=== PATIENT | male | born 1975 | race African-American/Black ===

== ENCOUNTER 2016-09-10 09:10 | Emergency (ER) | payer BC ==
[~2016-09-10] VITALS: Ht 190.5 cm; Wt 117.0 kg
[2016-09-10 09:12] VITALS: BP 170/94
== END 2016-09-10 10:26 | disposition home or self-care (01) ==
LOC: ED 10:20
DX: Z48.01 Encounter for change or removal of surgical wound dressing (principal); E11.9 Type 2 diabetes mellitus without complications; I10 Essential (primary) hypertension; E78.5 Hyperlipidemia, unspecified; Z99.2 Dependence on renal dialysis
CPT/HCPCS: 99282

== ENCOUNTER 2016-09-27 04:07 | Inpatient (IN) | payer BC ==
[~2016-09-27] VITALS: Ht 190.5 cm; Wt 112.2 kg
[2016-09-27] MEDS ORDERED: FURO20TA3 PO (04:43)
[2016-09-27] MEDS ORDERED: SIMV40TA3 PO (04:43)
[2016-09-27] MEDS ORDERED: HYDR-3341 PO (04:43)
[2016-09-27] MEDS ORDERED: INSU100V8 SQ (04:43)
[2016-09-27] MEDS ORDERED: CARV12.52 PO (04:43)
[2016-09-27] MEDS ORDERED: CALC0.5C PO (04:43)
[2016-09-27] MEDS ORDERED: LOSA50TA6 PO (04:43)
[2016-09-27] MEDS ORDERED: SODIUM CHLORIDE FLUSH 10ML SYR IVF ONE (05:30)
[2016-09-27 05:54] LABS: BLOOD UREA NITROGEN 39 mg/dL (7-18)
[2016-09-27 06:20] LABS: IS PT STATUS REG ER OR PRE ER? YES
[2016-09-27] MEDS ORDERED: HEPARIN 5,000 UNITS/ML, 1ML ONE (08:27)
[2016-09-27] MEDS ORDERED: HEPARIN 5,000 UNITS/ML, 1ML IV ONE (08:30)
[2016-09-27] MEDS ORDERED: SODIUM CHLORIDE FLUSH 10ML SYR IVF PRN (08:30)
[2016-09-27] MEDS ORDERED: HEPARIN 5,000 UNITS/ML, 1ML IV PRN (08:30)
[2016-09-27] MEDS ORDERED: HEPARIN 25,000 UNITS/500ML PMX 500 ML IV PRN (08:30)
[2016-09-27] MEDS ORDERED: HEPARIN 25,000 UNITS/500ML PMX 500 ML ONE (08:30)
[2016-09-27] MEDS ORDERED: OMNIPAQUE 350 MG/ML, 150 ML BOTTLE ONE (08:30)
[2016-09-27] MEDS ORDERED: LIDOCAINE 2%, 20ML ONE ×2 (10:21)
[2016-09-27] MEDS ORDERED: NALOXONE 1 MG/ML, 2ML ONE (10:22)
[2016-09-27] MEDS ORDERED: MIDAZOLAM 1 MG/ML, 5ML ONE (10:22)
[2016-09-27] MEDS ORDERED: FENTANYL PF 100 MCG/2ML ONE (10:22)
[2016-09-27] MEDS ORDERED: FLUMAZENIL 0.1 MG/1 ML, 5ML ONE (10:22)
[2016-09-27] MEDS ORDERED: morphine SULFATE 10 MG/ML, 1ML IVPush PRN (10:30)
[2016-09-27] MEDS ORDERED: GLUCAGON 1 MG IM PRN (10:30)
[2016-09-27] MEDS ORDERED: ACETAMINOPHEN 325 MG TABLET PO PRN (10:30)
[2016-09-27] MEDS ORDERED: ONDANSETRON 2MG/ML, 2ML IVPush PRN (10:30)
[2016-09-27] MEDS ORDERED: LABETALOL 5MG/ML 40ML VIAL IVPush PRN (10:30)
[2016-09-27] MEDS ORDERED: DEXTROSE 4 GM TAB.CHEW PO PRN (10:30)
[2016-09-27] MEDS ORDERED: POLYETHYLENE GLYCOL 17 GM PACKET PO PRN (10:30)
[2016-09-27] MEDS ORDERED: ONDANSETRON ODT 4 MG PO PRN (10:30)
[2016-09-27] MEDS ORDERED: BISACODYL 10 MG SUPP PR PRN (10:30)
[2016-09-27] MEDS ORDERED: DOCUSATE 100 MG CAPSULE PO PRN (10:30)
[2016-09-27] MEDS ORDERED: DEXTROSE 50%, 50ML SYRINGE IVPush PRN (10:30)
[2016-09-27 12:22] VITALS: BP 128/87
[2016-09-27] MEDS: INSULIN REGULAR 100 UNITS/ML, 3ML VIAL SQ-INSULIN SCH ×3 (13:10→21:12)
[2016-09-27 20:32] VITALS: BP 121/82
[2016-09-27] MEDS: HYDROcodone/APAP 5/325 TABLET PO PRN ×2 (21:09→23:11)
[2016-09-27] MEDS: SIMVASTATIN 40 MG TABLET PO SCH (21:10)
[2016-09-27] MEDS: SODIUM CHLORIDE FLUSH 10ML SYR IVF SCH (21:11)
[2016-09-27] MEDS: INSULIN DETEMIR 100 UNITS/ML, PEN SQ-INSULIN SCH (23:11)
[2016-09-28] MEDS ORDERED: MORPHINE SULFATE 4 MG/ML, 1ML ONE (01:35)
[2016-09-28] MEDS: HYDROcodone/APAP 5/325 TABLET PO PRN (03:23)
[2016-09-28 03:35] VITALS: BP 115/65
[2016-09-28 05:47] LABS: BLOOD UREA NITROGEN 34 mg/dL (7-18)
[2016-09-28] MEDS: INSULIN REGULAR 100 UNITS/ML, 3ML VIAL SQ-INSULIN SCH ×4 (07:00→20:44)
[2016-09-28] MEDS: HEPARIN 25,000 UNITS/500ML PMX 500 ML IV PRN (07:16)
[2016-09-28] MEDS: LOSARTAN 50MG TABLET PO SCH (08:53)
[2016-09-28] MEDS: CALCITRIOL 0.5 MCG CAPSULE PO SCH (08:53)
[2016-09-28] MEDS: CARVEDILOL 12.5 MG TABLET PO SCH (08:53)
[2016-09-28] MEDS: SODIUM CHLORIDE FLUSH 10ML SYR IVF SCH ×2 (08:54→20:45)
[2016-09-28 10:21] LABS: HEP B SURF. AB 3.7 mIU/mL (0.0-10.0)
[2016-09-28 10:47] VITALS: BP 108/75
[2016-09-28 14:32] VITALS: BP 142/95
[2016-09-28] MEDS ORDERED: WARFARIN 10 MG TABLET PO-COUM SCH (18:00)
[2016-09-28 20:00] VITALS: BP 131/82
[2016-09-28] MEDS: SIMVASTATIN 40 MG TABLET PO SCH (20:43)
[2016-09-28] MEDS: INSULIN DETEMIR 100 UNITS/ML, PEN SQ-INSULIN SCH (20:45)
[2016-09-29 02:00] VITALS: BP 122/67
[2016-09-29 05:37] LABS: ANTI-Xa-UNFRACTIONATED HEP 0.18 IU/mL (0.30-0.70)
[2016-09-29 05:50] LABS: BLOOD UREA NITROGEN 52 mg/dL (7-18)
[2016-09-29] MEDS: HEPARIN 25,000 UNITS/500ML PMX 500 ML IV PRN ×2 (05:59→23:39)
[2016-09-29] MEDS: HEPARIN 5,000 UNITS/ML, 1ML IV PRN (06:40)
[2016-09-29] MEDS: INSULIN REGULAR 100 UNITS/ML, 3ML VIAL SQ-INSULIN SCH ×4 (07:51→21:50)
[2016-09-29] MEDS: HYDROcodone/APAP 5/325 TABLET PO PRN (08:25)
[2016-09-29 08:45] VITALS: BP 129/78
[2016-09-29] MEDS: CALCITRIOL 0.5 MCG CAPSULE PO SCH (08:51)
[2016-09-29] MEDS: CARVEDILOL 12.5 MG TABLET PO SCH (08:51)
[2016-09-29] MEDS: LOSARTAN 50MG TABLET PO SCH (08:51)
[2016-09-29] MEDS: SODIUM CHLORIDE FLUSH 10ML SYR IVF SCH ×2 (08:51→21:50)
[2016-09-29 15:31] VITALS: BP 101/60
[2016-09-29] MEDS ORDERED: WARFARIN 7.5 MG TABLET PO-COUM ONE (18:00)
[2016-09-29 20:00] VITALS: BP 138/72
[2016-09-29] MEDS: SIMVASTATIN 40 MG TABLET PO SCH (21:49)
[2016-09-29] MEDS: ZOLPIDEM 5MG TABLET PO PRN (21:49)
[2016-09-29] MEDS: INSULIN DETEMIR 100 UNITS/ML, PEN SQ-INSULIN SCH (21:51)
[2016-09-30 02:00] VITALS: BP 120/71
[2016-09-30 05:42] LABS: ANTI-Xa-UNFRACTIONATED HEP 0.41 IU/mL (0.30-0.70)
[2016-09-30 05:43] LABS: BLOOD UREA NITROGEN 42 mg/dL (7-18)
[2016-09-30 06:46] VITALS: BP 131/86
[2016-09-30] MEDS: LOSARTAN 50MG TABLET PO SCH (08:08)
[2016-09-30] MEDS: SODIUM CHLORIDE FLUSH 10ML SYR IVF SCH ×2 (08:08→21:59)
[2016-09-30] MEDS: INSULIN REGULAR 100 UNITS/ML, 3ML VIAL SQ-INSULIN SCH ×4 (08:08→22:00)
[2016-09-30] MEDS: CARVEDILOL 12.5 MG TABLET PO SCH (08:08)
[2016-09-30] MEDS: CALCITRIOL 0.5 MCG CAPSULE PO SCH (08:09)
[2016-09-30] MEDS: HYDROcodone/APAP 5/325 TABLET PO PRN (11:38)
[2016-09-30 13:55] VITALS: BP 143/83
[2016-09-30] MEDS: WARFARIN HIGH DOSE PROTOCOL XX SCH ×3 (16:08→18:00)
[2016-09-30] MEDS ORDERED: WARFARIN 10 MG TABLET PO-COUM ONE (18:00)
[2016-09-30] MEDS: HEPARIN 25,000 UNITS/500ML PMX 500 ML IV PRN (18:22)
[2016-09-30 20:00] VITALS: BP 135/82
[2016-09-30] MEDS: ZOLPIDEM 5MG TABLET PO PRN (21:59)
[2016-09-30] MEDS: SIMVASTATIN 40 MG TABLET PO SCH (21:59)
[2016-09-30] MEDS: INSULIN DETEMIR 100 UNITS/ML, PEN SQ-INSULIN SCH (22:00)
[2016-10-01] MEDS: HYDROcodone/APAP 5/325 TABLET PO PRN ×2 (01:49→13:28)
[2016-10-01 02:00] VITALS: BP 143/77
[2016-10-01 04:25] LABS: ANTI-Xa-UNFRACTIONATED HEP 0.2 IU/mL (0.30-0.70)
[2016-10-01 04:30] LABS: BLOOD UREA NITROGEN 49 mg/dL (7-18)
[2016-10-01 04:36] LABS: ASPARTATE AMINO TRANSFERASE 17 U/L (15-37)
[2016-10-01] MEDS: HEPARIN 5,000 UNITS/ML, 1ML IV PRN (05:40)
[2016-10-01 06:45] VITALS: BP 150/88
[2016-10-01] MEDS: INSULIN REGULAR 100 UNITS/ML, 3ML VIAL SQ-INSULIN SCH ×4 (07:00→20:07)
[2016-10-01] MEDS: LOSARTAN 50MG TABLET PO SCH (08:46)
[2016-10-01] MEDS: CALCITRIOL 0.5 MCG CAPSULE PO SCH (08:46)
[2016-10-01] MEDS: CARVEDILOL 12.5 MG TABLET PO SCH (08:46)
[2016-10-01] MEDS: SODIUM CHLORIDE FLUSH 10ML SYR IVF SCH ×2 (08:47→21:00)
[2016-10-01] MEDS: WARFARIN HIGH DOSE PROTOCOL XX SCH (11:48)
[2016-10-01] MEDS: HEPARIN 25,000 UNITS/500ML PMX 500 ML IV PRN (12:43)
[2016-10-01 13:03] VITALS: BP 134/85
[2016-10-01] MEDS ORDERED: WARFARIN 10 MG TABLET PO-COUM ONE (18:00)
[2016-10-01] MEDS: INSULIN DETEMIR 100 UNITS/ML, PEN SQ-INSULIN SCH (20:07)
[2016-10-01] MEDS: SIMVASTATIN 40 MG TABLET PO SCH (20:08)
[2016-10-02 02:41] VITALS: BP 146/85
[2016-10-02 05:23] LABS: ANTI-Xa-UNFRACTIONATED HEP 0.59 IU/mL (0.30-0.70)
[2016-10-02 05:41] LABS: ASPARTATE AMINO TRANSFERASE 17 U/L (15-37); BLOOD UREA NITROGEN 59 mg/dL (7-18)
[2016-10-02] MEDS: HEPARIN 25,000 UNITS/500ML PMX 500 ML IV PRN (05:41)
[2016-10-02] MEDS: INSULIN REGULAR 100 UNITS/ML, 3ML VIAL SQ-INSULIN SCH ×4 (07:00→20:50)
[2016-10-02 08:39] VITALS: BP 173/91
[2016-10-02] MEDS: SODIUM CHLORIDE FLUSH 10ML SYR IVF SCH ×2 (09:00→20:49)
[2016-10-02] MEDS ORDERED: MICROFIBRILLAR COLLAGEN 1 GM TP ONE (10:00)
[2016-10-02] MEDS: WARFARIN HIGH DOSE PROTOCOL XX SCH (12:00)
[2016-10-02 14:48] VITALS: BP 107/77
[2016-10-02] MEDS: CALCITRIOL 0.5 MCG CAPSULE PO SCH (16:02)
[2016-10-02] MEDS: LOSARTAN 50MG TABLET PO SCH (16:02)
[2016-10-02] MEDS: CARVEDILOL 12.5 MG TABLET PO SCH (16:02)
[2016-10-02] MEDS ORDERED: WARFARIN 10 MG TABLET PO-COUM ONE (18:00)
[2016-10-02 19:05] VITALS: BP 100/57
[2016-10-02] MEDS: SIMVASTATIN 40 MG TABLET PO SCH (20:49)
[2016-10-02] MEDS: ZOLPIDEM 5MG TABLET PO PRN (20:49)
[2016-10-02] MEDS: INSULIN DETEMIR 100 UNITS/ML, PEN SQ-INSULIN SCH (20:51)
[2016-10-02] MEDS: HYDROcodone/APAP 5/325 TABLET PO PRN (23:54)
[2016-10-03 02:31] VITALS: BP 68/43
[2016-10-03 05:12] VITALS: BP 80/53
[2016-10-03 05:59] LABS: BLOOD UREA NITROGEN 51 mg/dL (7-18)
[2016-10-03] MEDS: INSULIN REGULAR 100 UNITS/ML, 3ML VIAL SQ-INSULIN SCH ×4 (07:30→20:33)
[2016-10-03] MEDS: HEPARIN 25,000 UNITS/500ML PMX 500 ML IV PRN (08:35)
[2016-10-03 09:00] VITALS: BP 113/73
[2016-10-03] MEDS: LOSARTAN 50MG TABLET PO SCH (09:00)
[2016-10-03] MEDS: CARVEDILOL 12.5 MG TABLET PO SCH (09:00)
[2016-10-03] MEDS: SODIUM CHLORIDE FLUSH 10ML SYR IVF SCH ×2 (09:00→20:33)
[2016-10-03] MEDS: CALCITRIOL 0.5 MCG CAPSULE PO SCH (09:10)
[2016-10-03] MEDS: WARFARIN HIGH DOSE PROTOCOL XX SCH (12:00)
[2016-10-03 14:30] VITALS: BP 113/68
[2016-10-03] MEDS ORDERED: WARFARIN 5 MG TABLET PO-COUM ONE (18:00)
[2016-10-03 20:04] VITALS: BP 123/72
[2016-10-03] MEDS: INSULIN DETEMIR 100 UNITS/ML, PEN SQ-INSULIN SCH (20:34)
[2016-10-03] MEDS: SIMVASTATIN 40 MG TABLET PO SCH (20:34)
[2016-10-04 02:40] VITALS: BP 104/53
[2016-10-04] MEDS: HEPARIN 25,000 UNITS/500ML PMX 500 ML IV PRN (03:42)
[2016-10-04 06:54] LABS: BLOOD UREA NITROGEN 62 mg/dL (7-18)
[2016-10-04] MEDS ORDERED: WARF5TAB PO (07:41)
[2016-10-04] MEDS: INSULIN REGULAR 100 UNITS/ML, 3ML VIAL SQ-INSULIN SCH (08:05)
[2016-10-04] MEDS: SODIUM CHLORIDE FLUSH 10ML SYR IVF SCH (08:12)
[2016-10-04] MEDS: CALCITRIOL 0.5 MCG CAPSULE PO SCH (08:12)
[2016-10-04 08:16] VITALS: BP 115/78
[2016-10-04] MEDS: LOSARTAN 50MG TABLET PO SCH (09:00)
[2016-10-04] MEDS: CARVEDILOL 12.5 MG TABLET PO SCH (09:00)
== END 2016-10-04 11:20 | disposition home or self-care (01) | DRG 299 ==
LOC: ED 04:51 → EDIP 08:28 → 4WST 12:13
PROVIDERS: ADMIT Internal Medicine; ATTEND Internal Medicine
PROC: 02HV33Z Insertion of Infusion Device into Superior Vena Cava, Percutaneous Approach (ICD-10-PCS; principal; 2016-09-27)
PROC: B548ZZA Ultrasonography of Superior Vena Cava, Guidance (ICD-10-PCS; 2016-09-27)
PROC: 5A1D60Z (ICD-10-PCS; 2016-09-27)
DX: I82.C11 Acute embolism and thrombosis of right internal jugular vein (principal); N18.6 End stage renal disease; I12.0 Hypertensive chronic kidney disease with stage 5 chronic kidney disease or end stage renal disease; E44.1 Mild protein-calorie malnutrition; E87.1 Hypo-osmolality and hyponatremia; I82.A11 Acute embolism and thrombosis of right axillary vein; E11.22 Type 2 diabetes mellitus with diabetic chronic kidney disease; D63.1 Anemia in chronic kidney disease; E78.5 Hyperlipidemia, unspecified; Z68.30 Body mass index [BMI] 30.0-30.9, adult; Z79.4 Long term (current) use of insulin; Z82.49 Family history of ischemic heart disease and other diseases of the circulatory system; Z99.2 Dependence on renal dialysis; Z83.3 Family history of diabetes mellitus; Z84.1 Family history of disorders of kidney and ureter
CPT/HCPCS: 36415; 36558; 71010; 71275; 76937; 77001; 80048; 80053; 82040; 82962; 84100; 84484; 85025; 85520; 85610; 85730; 86706; 87340; 93005; 93990; 96374; C1894; J1644; J1815; J2250; J2405; J3010; J3490; Q9967; C1750; J1642; J2310

== ENCOUNTER 2017-01-29 09:27 | Emergency (ER) | payer BC ==
[~2017-01-29] VITALS: Ht 190.5 cm; Wt 109.0 kg
[~2017-01-29 09:27] MED LIST: CALC0.5C PO; CARV12.52 PO; FURO20TA3 PO; HYDR-3341 PO; INSU100V8 SQ; LOSA50TA6 PO; SIMV40TA3 PO; WARF5TAB PO
[2017-01-29] MEDS ORDERED: AMLO5TAB2 PO (09:42)
[2017-01-29] MEDS ORDERED: WARF10TA6 PO (09:42)
[2017-01-29] MEDS ORDERED: WARF5TAB7 PO (09:42)
[2017-01-29] MEDS ORDERED: GLIM2TAB2 PO (09:42)
[2017-01-29] MEDS ORDERED: ONDANSETRON 2MG/ML, 2ML ONE (10:28)
[2017-01-29] MEDS ORDERED: SODIUM CHLORIDE FLUSH 10ML SYR IVF ONE (10:30)
[2017-01-29] MEDS ORDERED: ONDANSETRON 2MG/ML, 2ML IVPush ONE (10:30)
[2017-01-29] MEDS ORDERED: SODIUM CHLORIDE 0.9% 1,000ML IVBOLUS ONE (10:30)
[2017-01-29 11:04] LABS: BLOOD UREA NITROGEN 30 mg/dL (7-18)
[2017-01-29 11:06] LABS: ASPARTATE AMINO TRANSFERASE 18 U/L (15-37)
[2017-01-29 11:13] LABS: HEMATOCRIT 33.3 % (39.2-51.8); HEMOGLOBIN 11.4 g/dL (13.7-18.0); WHITE BLOOD COUNT 10.8 x10^3/uL (3.4-10)
[2017-01-29 11:14] LABS: DIFF TOTAL CELLS COUNTED 100 CELL DIFF
[2017-01-29 11:18] LABS: ANISOCYTOSIS 1+
[2017-01-29 11:26] LABS: VERIFY COUNTS? YES
[2017-01-29 12:35] VITALS: BP 173/101
== END 2017-01-29 13:17 | disposition home or self-care (01) ==
LOC: ED 13:11
DX: S09.90XA Unspecified injury of head, initial encounter (principal); R55 Syncope and collapse; E87.1 Hypo-osmolality and hyponatremia; E87.5 Hyperkalemia; E11.22 Type 2 diabetes mellitus with diabetic chronic kidney disease; I12.9 Hypertensive chronic kidney disease with stage 1 through stage 4 chronic kidney disease, or unspecified chronic kidney disease; N18.9 Chronic kidney disease, unspecified; Z86.718 Personal history of other venous thrombosis and embolism; E78.5 Hyperlipidemia, unspecified; Z99.2 Dependence on renal dialysis; X58.XXXA Exposure to other specified factors, initial encounter; Y93.89 Activity, other specified; Y99.8 Other external cause status; Y92.89 Other specified places as the place of occurrence of the external cause
CPT/HCPCS: 36415; 70450; 71010; 80053; 85025; 85610; 85730; 93005; 96361; 96374; 99285; J2405; J7030

== ENCOUNTER 2018-09-15 19:13 | Inpatient (IN) | payer BC, OTHER ==
[~2018-09-15] VITALS: Ht 182.9 cm; Wt 112.9 kg
[~2018-09-15 19:13] MED LIST changes: +AMLO-150 PO; -CALC0.5C PO; +CALC0.5C9 PO; +GLIM2TAB2 PO; +LOSA50TA14 PO; -LOSA50TA6 PO; +WARF-36 PO; +WARF10TA43 PO
--- NOTE | 2018-09-15 19:40 | NUR ---
THIS IS A 43 YO MALE WHO PRESENTS TO THE ER C/O GENERALIZED WEAKNESS AFTER BEING UNABLE TO COMPLETE DIALYSIS TODAY. PT HAS RIGHT FISTULA. NO BRUIT/THRILL NOTED. PER PT LAST SUCCESSFUL DIALYSIS WAS SUNDAY. PT HAD MILDLY SUCCESSFUL DIALYSIS ON SUNDAY BUT THEY WERE UNABLE TO FINISH, TOLD PT TO RETURN TODAY. FISTULA NOT FUNCTIONING TODAY. PT AO X 4. SKIN WARM AND DRY. PT DENIES PAIN, SOB OR N/V. 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 PT ON CONT BP AND O2 MONITORS. CALL LIGHT WITHIN REACH. FAMILY AT BEDSIDE. WILL CONT TO MONITOR PT.
[2018-09-15 20:23] LABS: BASOPHILS # (AUTO) 0.03 x10^3/uL (0-0.1); BASOPHILS % (AUTO) 1 % (0-1); EOSINOPHILS # (AUTO) 0.22 x10^3/uL (0-0.4); EOSINOPHILS % (AUTO) 4 % (1-7); LYMPHOCYTES # (AUTO) 1.47 x10^3/uL (1-3.4); LYMPHOCYTES % (AUTO) 26 % (22-44); MD NO; MEAN CORPUSCULAR HEMOGLOBIN 31.9 pg (27.5-34.5); MEAN CORPUSCULAR HGB CONC 33.2 g/dL (33.2-36.2); MEAN CORPUSCULAR VOLUME 95.9 fL (81-97); MEAN PLATELET VOLUME 7.2 fL (7.4-10.4); MONOCYTES # (AUTO) 0.33 x10^3/uL (0.2-0.8); MONOCYTES % (AUTO) 6 % (2-9); NEUTROPHILS # (AUTO) 3.65 x10^3/uL (1.8-6.8); NEUTROPHILS % (AUTO) 64 % (42-75); PLATELET COUNT 319 x10^3/uL (130-400); RED BLOOD COUNT 3.36 x10^6/uL (4.38-5.82); RED CELL DISTRIBUTION WIDTH 16.1 % (9.4-14.8)
[2018-09-15] MEDS ORDERED: ATOR40TA PO (20:24)
[2018-09-15] MEDS ORDERED: SODIUM CHLORIDE FLUSH 10ML SYR IVF ONE (20:30)
--- NOTE | 2018-09-15 20:30 | NUR ---
PT RESTING ON GURNEY. REPOSITIONED FOR COMFORT. PT DENIES PAIN, SOB OR N/V. PT AWARE WE ARE WAITING FOR LAB/IMAGING RESULTS. PT ON CONT BP, CARDIAC AND O2 MONITORS. CALL LIGHT WITHIN REACH. WILL CONT TO MONITOR PT.
[2018-09-15 20:34] LABS: ALBUMIN 3.8 g/dL (3.4-5.0); ANION GAP 8 mmol/L (5-15); CALCIUM 7.3 mg/dL (8.5-10.1); CHLORIDE 107 mmol/L (98-107)
[2018-09-15 20:42] LABS: INTERNATIONAL NORMALIZED RATIO 1.02 (0.93-1.1); PROTHROMBIN TIME 10.7 Seconds (9.6-11.5)
[2018-09-15] MEDS ORDERED: SODIUM BICARB 8.4%, 50ML SYRINGE ONE (21:00)
[2018-09-15] MEDS ORDERED: DEXTROSE 50%, 50ML SYRINGE IVPush ONE (21:00)
[2018-09-15] MEDS ORDERED: SODIUM POLY SULFONATE UDC 15 GM/60 ML PO ONE (21:00)
[2018-09-15] MEDS ORDERED: CALCIUM GLUCONATE 4.6 MEQ in SODIUM CHLORIDE 0.9% 50 ML IV ONE ×2 (21:00→22:00)
[2018-09-15] MEDS ORDERED: INSULIN REGULAR 100 UNITS/ML, 3ML VIAL IVPush ONE (21:00)
[2018-09-15] MEDS ORDERED: INSULIN SINGLE DOSE, ER SQ-INSULIN ONE (21:00)
[2018-09-15] MEDS ORDERED: SODIUM BICARB 8.4%, 50ML SYRINGE IVPush ONE (21:00)
--- NOTE | 2018-09-15 21:27 | NUR ---
PT CURRENTLY DOZING ON TAB. PT AWAKENS EASILY TO NAME BEING CALLED. PT AO X 4. SKIN WARM AND DRY. RESP EVEN AND UNLABORED. PT AWARE THAT WE ARE WAITING FOR ADMISSION. DENIES PAIN OR NEEDS AT THIS TIME. PT ON CONT BP, CARDIAC AND O2 MONITORS. CALL LIGHT WITHIN REACH. WILL CONT TO MONITOR PT.
--- NOTE | 2018-09-15 21:39 | NUR ---
ADMITTING MD MALDONADO AT BEDSIDE FOR EVAL.
[2018-09-15] MEDS ORDERED: DEXTROSE 50%, 50ML SYRINGE IVPush PRN (22:00)
[2018-09-15] MEDS ORDERED: PROMETHAZINE 25 MG/ML, 1ML IM PRN (22:00)
[2018-09-15] MEDS ORDERED: DEXTROSE 4 GM TAB.CHEW PO PRN (22:00)
[2018-09-15] MEDS ORDERED: ACETAMINOPHEN 325 MG TABLET PO PRN (22:00)
[2018-09-15] MEDS ORDERED: hydrALAzine 20 MG/ML, 1ML IVPush PRN (22:00)
[2018-09-15] MEDS ORDERED: GLUCAGON 1 MG IM PRN (22:00)
--- NOTE | 2018-09-15 22:05 | NUR ---
REPORT TO CATHY MARSHALL ON MED/TELE. RN AWARE THAT PT DID NOT RECIEVE THE POLY SULFONATE YET. PT AO X 4. SKIN WARM AND DRY. RESP EVEN AND EQUAL. PT CONT TO DENY PAIN. 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 CALL LIGHT WITHIN REACH.
[2018-09-15 22:15] VITALS: BP 127/85
[2018-09-15 22:57] LABS: HEMOGLOBIN A1C 8.8 % (4.2-6.3)
[2018-09-15] MEDS: FUROSEMIDE 20 MG TABLET PO SCH (23:32)
[2018-09-15] MEDS: HEPARIN 5,000 UNITS/ML, 1ML SQ SCH (23:32)
[2018-09-16 00:13] LABS: ALBUMIN 3.6 g/dL (3.4-5.0); ANION GAP 10 mmol/L (5-15); CALCIUM 7.7 mg/dL (8.5-10.1); CHLORIDE 109 mmol/L (98-107)
[2018-09-16 00:23] LABS: THYROID STIMULATING HORMONE 0.515 mIU/L (0.358-3.740)
[2018-09-16 00:50] VITALS: BP 151/90
[2018-09-16 05:54] LABS: BASOPHILS # (AUTO) 0.01 x10^3/uL (0-0.1); BASOPHILS % (AUTO) 0 % (0-1); EOSINOPHILS # (AUTO) 0.07 x10^3/uL (0-0.4); EOSINOPHILS % (AUTO) 1 % (1-7); LYMPHOCYTES # (AUTO) 0.85 x10^3/uL (1-3.4); LYMPHOCYTES % (AUTO) 13 % (22-44); MD NO; MEAN CORPUSCULAR HEMOGLOBIN 32.8 pg (27.5-34.5); MEAN CORPUSCULAR HGB CONC 34.1 g/dL (33.2-36.2); MEAN CORPUSCULAR VOLUME 96.3 fL (81-97); MEAN PLATELET VOLUME 7.2 fL (7.4-10.4); MONOCYTES # (AUTO) 0.24 x10^3/uL (0.2-0.8); MONOCYTES % (AUTO) 4 % (2-9); NEUTROPHILS # (AUTO) 5.62 x10^3/uL (1.8-6.8); NEUTROPHILS % (AUTO) 83 % (42-75); PLATELET COUNT 296 x10^3/uL (130-400); RED BLOOD COUNT 3.43 x10^6/uL (4.38-5.82); RED CELL DISTRIBUTION WIDTH 16.1 % (9.4-14.8)
[2018-09-16] MEDS: HEPARIN 5,000 UNITS/ML, 1ML SQ SCH ×3 (06:00→22:11)
[2018-09-16 07:10] LABS: ANION GAP 10 mmol/L (5-15); CALCIUM 7.4 mg/dL (8.5-10.1); CHLORIDE 106 mmol/L (98-107)
[2018-09-16 07:14] LABS: CHOL/HDL RATIO 4.1; CHOLESTEROL, TOTAL 110 mg/dL (140-239); HDL CHOL % 25 % (26-37); HDL CHOLESTEROL (DIRECT) 27 mg/dL (40-60); LDL CHOLESTEROL,CALCULATED 57 mg/dL (54-169); LDL/HDL RATIO 2.1 (0.5-3.0); TRIGLYCERIDES 128 mg/dL (50-200); VLDL CHOLESTEROL 26 mg/dL (0-25)
[2018-09-16 07:19] VITALS: BP 135/80
[2018-09-16] MEDS ORDERED: CALCIUM GLUCONATE 4.6 MEQ in SODIUM CHLORIDE 0.9% 50 ML IV ONE (07:30)
[2018-09-16] MEDS ORDERED: CALCIUM GLUCONATE 0.46MEQ/1ML IVPush ONE (07:30)
[2018-09-16] MEDS ORDERED: SODIUM BICARB 8.4%, 50ML SYRINGE IVPush SCH (07:30)
[2018-09-16] MEDS ORDERED: INSULIN REGULAR 100 UNITS/ML, 3ML VIAL IVPush ONE (07:30)
[2018-09-16] MEDS ORDERED: DEXTROSE 50%, 50ML SYRINGE IVPush ONE (07:30)
[2018-09-16] MEDS ORDERED: SODIUM BICARB 8.4%, 50ML SYRINGE IVPush ONE (08:00)
[2018-09-16] MEDS ORDERED: SODIUM POLY SULFONATE UDC 15 GM/60 ML PO ONE ×2 (08:30)
[2018-09-16] MEDS: FUROSEMIDE 20 MG TABLET PO SCH ×2 (09:00→22:12)
[2018-09-16] MEDS: CARVEDILOL 12.5 MG TABLET PO SCH ×2 (09:00→22:12)
[2018-09-16] MEDS: INSULIN LISPRO 100 UNITS/ML, PEN SQ-INSULIN SCH ×4 (09:34→22:11)
[2018-09-16] MEDS ORDERED: LIDOCAINE 1%, 20ML ONE (10:30)
[2018-09-16] MEDS: SODIUM CHLORIDE FLUSH 10ML SYR IVF SCH ×2 (12:18→22:13)
[2018-09-16 14:05] VITALS: BP 144/91
[2018-09-16] MEDS: LOSARTAN 50MG TABLET PO SCH (17:41)
[2018-09-16] MEDS: AMLODIPINE 5 MG TABLET PO SCH (17:41)
[2018-09-16 20:03] VITALS: BP 118/74
[2018-09-16] MEDS: ATORVASTATIN 40 MG TABLET PO SCH (22:12)
[2018-09-17 02:44] VITALS: BP 128/78
[2018-09-17] MEDS: HEPARIN 5,000 UNITS/ML, 1ML SQ SCH ×3 (05:36→22:09)
[2018-09-17] MEDS: INSULIN LISPRO 100 UNITS/ML, PEN SQ-INSULIN SCH ×4 (07:00→20:26)
[2018-09-17 07:08] VITALS: BP 115/74
[2018-09-17 07:40] LABS: BASOPHILS # (AUTO) 0.01 x10^3/uL (0-0.1); BASOPHILS % (AUTO) 0 % (0-1); EOSINOPHILS # (AUTO) 0.11 x10^3/uL (0-0.4); EOSINOPHILS % (AUTO) 2 % (1-7); LYMPHOCYTES # (AUTO) 1.17 x10^3/uL (1-3.4); LYMPHOCYTES % (AUTO) 21 % (22-44); MD NO; MEAN CORPUSCULAR HGB CONC 33.6 g/dL (33.2-36.2); MEAN CORPUSCULAR VOLUME 95.2 fL (81-97); MEAN PLATELET VOLUME 6.9 fL (7.4-10.4); MONOCYTES # (AUTO) 0.29 x10^3/uL (0.2-0.8); MONOCYTES % (AUTO) 5 % (2-9); NEUTROPHILS # (AUTO) 4.09 x10^3/uL (1.8-6.8); NEUTROPHILS % (AUTO) 72 % (42-75); PLATELET COUNT 291 x10^3/uL (130-400); RED BLOOD COUNT 3.29 x10^6/uL (4.38-5.82); RED CELL DISTRIBUTION WIDTH 16.3 % (9.4-14.8)
[2018-09-17 07:51] LABS: ANION GAP 9 mmol/L (5-15); CALCIUM 7.6 mg/dL (8.5-10.1); CHLORIDE 105 mmol/L (98-107)
[2018-09-17] MEDS: SODIUM CHLORIDE FLUSH 10ML SYR IVF SCH ×2 (08:23→20:27)
[2018-09-17] MEDS: SEVELAMER CARBONATE 800MG TAB PO SCH ×2 (12:00→17:37)
[2018-09-17 13:03] VITALS: BP 132/54
[2018-09-17 15:36] VITALS: BP 127/75
[2018-09-17] MEDS: CARVEDILOL 12.5 MG TABLET PO SCH ×2 (15:44→20:25)
[2018-09-17] MEDS: AMLODIPINE 5 MG TABLET PO SCH (15:44)
[2018-09-17] MEDS: FUROSEMIDE 20 MG TABLET PO SCH ×2 (15:44→20:19)
[2018-09-17] MEDS: LOSARTAN 50MG TABLET PO SCH (15:44)
[2018-09-17 18:50] VITALS: BP 93/57
[2018-09-17] MEDS: DIPHENHYDRAMINE 50 MG CAPSULE PO PRN (20:26)
[2018-09-17] MEDS: ATORVASTATIN 40 MG TABLET PO SCH (20:26)
[2018-09-18 02:08] VITALS: BP 92/57
[2018-09-18 06:16] LABS: ALBUMIN 3.4 g/dL (3.4-5.0); ANION GAP 7 mmol/L (5-15); CALCIUM 7.8 mg/dL (8.5-10.1); CHLORIDE 102 mmol/L (98-107)
[2018-09-18] MEDS: HEPARIN 5,000 UNITS/ML, 1ML SQ SCH ×3 (06:17→22:00)
[2018-09-18] MEDS: INSULIN LISPRO 100 UNITS/ML, PEN SQ-INSULIN SCH ×4 (07:00→20:38)
[2018-09-18 07:14] VITALS: BP 95/59
[2018-09-18] MEDS: SEVELAMER CARBONATE 800MG TAB PO SCH ×3 (07:23→20:09)
[2018-09-18] MEDS: LOSARTAN 50MG TABLET PO SCH (09:00)
[2018-09-18] MEDS: AMLODIPINE 5 MG TABLET PO SCH (09:00)
[2018-09-18] MEDS: FUROSEMIDE 20 MG TABLET PO SCH ×2 (09:00→20:10)
[2018-09-18] MEDS: CARVEDILOL 12.5 MG TABLET PO SCH ×2 (09:29→20:10)
[2018-09-18] MEDS: SODIUM CHLORIDE FLUSH 10ML SYR IVF SCH ×2 (12:04→20:09)
[2018-09-18] MEDS ORDERED: PROTAMINE SULFATE 10 MG/ML, 5ML ONE (13:31)
[2018-09-18] MEDS ORDERED: BUPIVACAINE/PF 0.5% ONE (13:31)
[2018-09-18] MEDS ORDERED: THROMBIN 5,000 UNIT VIAL TP ONE (13:32)
[2018-09-18] MEDS ORDERED: HEPARIN 1,000 UNITS/ML, 10ML ONE (13:32)
[2018-09-18] MEDS ORDERED: FENTANYL PF 250 MCG/5ML ONE (14:13)
[2018-09-18] MEDS ORDERED: THROMBIN 20,000 UNIT VIAL TP ONE (14:20)
[2018-09-18] MEDS ORDERED: MICROFIBRILLAR COLLAGEN 1 GM TP ONE (14:20)
[2018-09-18] MEDS ORDERED: EPHEDRINE 50 MG/ML, 1ML ONE (14:22)
[2018-09-18] MEDS ORDERED: MIDAZOLAM 1 MG/ML, 2ML ONE (14:24)
[2018-09-18] MEDS ORDERED: ONDANSETRON 2MG/ML, 2ML ONE (15:15)
[2018-09-18] MEDS ORDERED: CEFAZOLIN 1,000 MG ONE (15:15)
[2018-09-18] MEDS ORDERED: DEXAMETHASONE 4 MG/ML, 1ML ONE (15:15)
[2018-09-18] MEDS ORDERED: PROPOFOL 10 MG/ML, 20ML ONE (15:15)
[2018-09-18] MEDS ORDERED: FENTANYL PF 100 MCG/2ML ONE (15:18)
[2018-09-18] MEDS ORDERED: ACETAMINOPHEN 325 MG TABLET PO PRN (15:30)
[2018-09-18] MEDS ORDERED: FENTANYL PF 100 MCG/2ML IV PRN (15:30)
[2018-09-18] MEDS ORDERED: HYDROmorphone 2 MG/ML, 1ML IVPush PRN (15:30)
[2018-09-18] MEDS ORDERED: PROMETHAZINE 25 MG/ML, 1ML IV PRN (15:30)
[2018-09-18] MEDS ORDERED: OXYcodone 5 MG/5 ML ORAL.SOL UDC PO PRN (15:30)
[2018-09-18] MEDS ORDERED: ONDANSETRON ODT 8 MG PO PRN (15:30)
[2018-09-18] MEDS ORDERED: ONDANSETRON 2MG/ML, 2ML IV PRN (15:30)
[2018-09-18] MEDS ORDERED: OXYcodone 5 MG/5 ML ORAL.SOL UDC ONE (16:07)
[2018-09-18] MEDS ORDERED: OXYcodone/APAP 5/325MG TABLET ONE (17:48)
[2018-09-18] MEDS ORDERED: OXYcodone IR 5MG TABLET PO PRN ×2 (18:00)
[2018-09-18 18:33] VITALS: BP 167/85
[2018-09-18 19:05] VITALS: BP 126/82
[2018-09-18] MEDS: ATORVASTATIN 40 MG TABLET PO SCH (20:10)
[2018-09-19 00:39] VITALS: BP 105/66
[2018-09-19 05:14] LABS: BASOPHILS % (AUTO) 0 % (0-1); EOSINOPHILS # (AUTO) 0.29 x10^3/uL (0-0.4); EOSINOPHILS % (AUTO) 4 % (1-7); LYMPHOCYTES # (AUTO) 0.88 x10^3/uL (1-3.4); LYMPHOCYTES % (AUTO) 13 % (22-44); MD NO; MEAN CORPUSCULAR HEMOGLOBIN 32.6 pg (27.5-34.5); MEAN CORPUSCULAR VOLUME 95.9 fL (81-97); MONOCYTES # (AUTO) 0.38 x10^3/uL (0.2-0.8); MONOCYTES % (AUTO) 6 % (2-9); NEUTROPHILS # (AUTO) 5.23 x10^3/uL (1.8-6.8); NEUTROPHILS % (AUTO) 77 % (42-75); PLATELET COUNT 256 x10^3/uL (130-400); RED CELL DISTRIBUTION WIDTH 15.4 % (9.4-14.8)
[2018-09-19 05:20] LABS: ALBUMIN 3.3 g/dL (3.4-5.0); ANION GAP 9 mmol/L (5-15); CALCIUM 7.8 mg/dL (8.5-10.1); CHLORIDE 101 mmol/L (98-107)
[2018-09-19] MEDS: HEPARIN 5,000 UNITS/ML, 1ML SQ SCH ×3 (05:28→21:30)
[2018-09-19] MEDS: INSULIN LISPRO 100 UNITS/ML, PEN SQ-INSULIN SCH ×4 (07:00→20:32)
[2018-09-19] MEDS: SEVELAMER CARBONATE 800MG TAB PO SCH ×3 (08:00→17:50)
[2018-09-19] MEDS: SODIUM CHLORIDE FLUSH 10ML SYR IVF SCH ×2 (09:00→21:00)
[2018-09-19] MEDS: CARVEDILOL 12.5 MG TABLET PO SCH ×2 (09:00→21:00)
[2018-09-19] MEDS: LOSARTAN 50MG TABLET PO SCH (09:00)
[2018-09-19] MEDS: FUROSEMIDE 20 MG TABLET PO SCH ×2 (09:00→21:31)
[2018-09-19] MEDS: AMLODIPINE 5 MG TABLET PO SCH (09:00)
[2018-09-19 12:16] VITALS: BP 112/81
[2018-09-19 20:00] VITALS: BP 114/62
[2018-09-19] MEDS ORDERED: INSULIN GLARGINE 100 UNITS/ML, PEN SQ-INSULIN SCH (21:00)
[2018-09-19] MEDS: ATORVASTATIN 40 MG TABLET PO SCH (21:32)
[2018-09-20 02:00] VITALS: BP 121/76
[2018-09-20] MEDS: DIPHENHYDRAMINE 50 MG CAPSULE PO PRN (03:07)
[2018-09-20 05:58] LABS: ALBUMIN 3.6 g/dL (3.4-5.0); CALCIUM 8.6 mg/dL (8.5-10.1); CHLORIDE 99 mmol/L (98-107)
[2018-09-20 06:01] LABS: ANION GAP 9 mmol/L (5-15)
[2018-09-20] MEDS: HEPARIN 5,000 UNITS/ML, 1ML SQ SCH ×2 (06:05→14:00)
[2018-09-20] MEDS: INSULIN LISPRO 100 UNITS/ML, PEN SQ-INSULIN SCH ×3 (07:00→16:00)
[2018-09-20 07:24] VITALS: BP 118/77
[2018-09-20] MEDS: SEVELAMER CARBONATE 800MG TAB PO SCH ×2 (08:44→13:39)
[2018-09-20] MEDS: FUROSEMIDE 20 MG TABLET PO SCH (08:45)
[2018-09-20] MEDS: CARVEDILOL 12.5 MG TABLET PO SCH (08:45)
[2018-09-20] MEDS: LOSARTAN 50MG TABLET PO SCH (08:45)
[2018-09-20] MEDS: SODIUM CHLORIDE FLUSH 10ML SYR IVF SCH (08:45)
[2018-09-20] MEDS: AMLODIPINE 5 MG TABLET PO SCH (08:45)
[2018-09-20] MEDS ORDERED: GLIMEPIRIDE 1 MG TABLET PO SCH (09:00)
[2018-09-20] MEDS ORDERED: SEVE800T8 PO (17:11)
== END 2018-09-20 19:35 | disposition home or self-care (01) | DRG 252 ==
LOC: ED 20:52 → EDIP 20:53 → ED 21:00 → 4EST 22:08
PROVIDERS: ADMIT Family Medicine; ATTEND Family Medicine
PROC: 02HV33Z Insertion of Infusion Device into Superior Vena Cava, Percutaneous Approach (ICD-10-PCS; 2018-09-16)
PROC: B5181ZA Fluoroscopy of Superior Vena Cava using Low Osmolar Contrast, Guidance (ICD-10-PCS; 2018-09-16)
PROC: B548ZZA Ultrasonography of Superior Vena Cava, Guidance (ICD-10-PCS; 2018-09-16)
PROC: 5A1D70Z Performance of Urinary Filtration, Intermittent, Less than 6 Hours Per Day (ICD-10-PCS; 2018-09-16)
PROC: 5A1D70Z Performance of Urinary Filtration, Intermittent, Less than 6 Hours Per Day (ICD-10-PCS; 2018-09-17)
PROC: 0JH63XZ Insertion of Tunneled Vascular Access Device into Chest Subcutaneous Tissue and Fascia, Percutaneous Approach (ICD-10-PCS; 2018-09-18)
PROC: 02PY33Z Removal of Infusion Device from Great Vessel, Percutaneous Approach (ICD-10-PCS; 2018-09-18)
PROC: 02HV33Z Insertion of Infusion Device into Superior Vena Cava, Percutaneous Approach (ICD-10-PCS; 2018-09-18)
PROC: B5181ZA Fluoroscopy of Superior Vena Cava using Low Osmolar Contrast, Guidance (ICD-10-PCS; 2018-09-18)
PROC: B548ZZA Ultrasonography of Superior Vena Cava, Guidance (ICD-10-PCS; 2018-09-18)
PROC: 031B0ZF Bypass Right Radial Artery to Lower Arm Vein, Open Approach (ICD-10-PCS; principal; 2018-09-18 14:30)
PROC: 05LD0ZZ Occlusion of Right Cephalic Vein, Open Approach (ICD-10-PCS; 2018-09-18 14:30)
PROC: 5A1D70Z Performance of Urinary Filtration, Intermittent, Less than 6 Hours Per Day (ICD-10-PCS; 2018-09-19)
PROC: 5A1D70Z Performance of Urinary Filtration, Intermittent, Less than 6 Hours Per Day (ICD-10-PCS; 2018-09-20)
DX: T82.868A Thrombosis due to vascular prosthetic devices, implants and grafts, initial encounter (principal); N18.6 End stage renal disease; I12.0 Hypertensive chronic kidney disease with stage 5 chronic kidney disease or end stage renal disease; E87.5 Hyperkalemia; D63.1 Anemia in chronic kidney disease; E11.22 Type 2 diabetes mellitus with diabetic chronic kidney disease; E11.649 Type 2 diabetes mellitus with hypoglycemia without coma; E78.5 Hyperlipidemia, unspecified; E83.39 Other disorders of phosphorus metabolism; R19.7 Diarrhea, unspecified; Y71.2 Prosthetic and other implants, materials and accessory cardiovascular devices associated with adverse incidents; E83.51 Hypocalcemia; N25.0 Renal osteodystrophy; Y92.89 Other specified places as the place of occurrence of the external cause; Z79.4 Long term (current) use of insulin; Z99.2 Dependence on renal dialysis; Z87.01 Personal history of pneumonia (recurrent)
CPT/HCPCS: 36415; 36556; 71045; 76000; 76937; 77001; 80048; 80061; 80069; 82040; 82962; 83036; 83735; 84100; 84443; 85025; 85610; 85730; 86705; 86706; 87340; 93005; 96365; 96375; G0378; J0610; J0690; J1100; J1644; J1815; J2250; J2405; J2550; J2704; J2720; J3010; C1751; C1757; J1642

== ENCOUNTER 2018-11-04 10:33 | Day surgery (SDC) | payer BC ==
[~2018-11-04] VITALS: Ht 182.9 cm; Wt 107.1 kg
[~2018-11-04 10:33] MED LIST changes: +ATOR40TA PO; +BUPIVACAINE/EPI 0.5% 1:200K ONE; +HEPARIN 1,000 UNITS/ML, 10ML ONE; +SEVE800T8 PO
[2018-11-04] MEDS ORDERED: SODIUM CHLORIDE 0.9% 1,000 ML IV SCH (11:09)
[2018-11-04] MEDS ORDERED: VITAMIN D PO (11:15)
[2018-11-04 11:19] VITALS: BP 118/81
[2018-11-04] MEDS ORDERED: FENTANYL PF 100 MCG/2ML ONE ×2 (12:24→12:56)
[2018-11-04] MEDS ORDERED: MIDAZOLAM 1 MG/ML, 2ML ONE (12:24)
[2018-11-04] MEDS ORDERED: LIDOCAINE-MPF 2% ,5ML ONE (12:28)
[2018-11-04] MEDS ORDERED: SUCCINYLCHOLINE 20 MG/ML, 10ML ONE (12:28)
[2018-11-04] MEDS ORDERED: ROCURONIUM 10MG/ML,5ML ONE (12:28)
[2018-11-04] MEDS ORDERED: PROPOFOL 10 MG/ML, 20ML ONE (12:28)
[2018-11-04] MEDS ORDERED: ONDANSETRON 2MG/ML, 2ML ONE ×2 (12:29→12:33)
[2018-11-04] MEDS ORDERED: DEXAMETHASONE 4 MG/ML, 1ML ONE ×2 (12:29→12:33)
[2018-11-04] MEDS ORDERED: CEFAZOLIN 1,000 MG ONE ×2 (12:33)
[2018-11-04] MEDS ORDERED: NEOSTIGMINE 1 MG/ML, 10ML ONE (12:54)
[2018-11-04] MEDS ORDERED: GLYCOPYRROLATE 0.4 MG/2 ML, 2ML ONE (12:54)
[2018-11-04] MEDS ORDERED: HALOPERIDOL 5 MG/ML IV PRN (13:00)
[2018-11-04] MEDS ORDERED: HYDROmorphone 2 MG/ML, 1ML IVPush PRN (13:00)
[2018-11-04] MEDS ORDERED: ALBUTEROL SULFATE 2.5 MG/3 ML NPPB PRN (13:00)
[2018-11-04] MEDS ORDERED: MORPHINE SULFATE 4 MG/ML, 1ML IVPush PRN (13:00)
[2018-11-04] MEDS ORDERED: ONDANSETRON 2MG/ML, 2ML IV PRN (13:00)
[2018-11-04] MEDS ORDERED: PROMETHAZINE 25 MG/ML, 1ML IV PRN (13:00)
[2018-11-04] MEDS ORDERED: ACETAMINOPHEN 325 MG TABLET PO PRN (13:00)
[2018-11-04] MEDS ORDERED: MIDAZOLAM 1 MG/ML, 2ML IV PRN (13:00)
[2018-11-04] MEDS ORDERED: OXYcodone 5 MG/5 ML ORAL.SOL UDC PO PRN (13:00)
[2018-11-04] MEDS ORDERED: DIAZEPAM 5 MG/ML, 2ML IVPush PRN (13:00)
[2018-11-04] MEDS ORDERED: ONDANSETRON ODT 8 MG PO PRN (13:00)
[2018-11-04] MEDS ORDERED: hydrALAzine 20 MG/ML, 1ML IV PRN (13:00)
[2018-11-04] MEDS ORDERED: FENTANYL PF 100 MCG/2ML IV PRN (13:00)
[2018-11-04] MEDS ORDERED: MEPERIDINE/PF 25MG/0.5ML IVPush PRN (13:00)
[2018-11-04] MEDS ORDERED: EPHEDRINE 50 MG/ML, 1ML IVPush PRN (13:00)
[2018-11-04] MEDS ORDERED: PROMETHAZINE 12.5 MG SUPP PR PRN (13:00)
[2018-11-04] MEDS ORDERED: LABETALOL 5MG/ML, 20ML IV PRN (13:00)
[2018-11-04] MEDS ORDERED: OXYcodone 5 MG/5 ML ORAL.SOL UDC ONE (13:18)
[2018-11-04] MEDS ORDERED: ACETAMINOPHEN 650 MG/20.3 ML UDC ONE (13:19)
== END 2018-11-04 15:36 | disposition home or self-care (01) ==
LOC: OR 10:33
PROVIDERS: ATTEND Surgery Vascular Surgery
DX: E11.22 Type 2 diabetes mellitus with diabetic chronic kidney disease (principal); I12.0 Hypertensive chronic kidney disease with stage 5 chronic kidney disease or end stage renal disease; N18.6 End stage renal disease; E78.5 Hyperlipidemia, unspecified; E66.9 Obesity, unspecified; Z79.84 Long term (current) use of oral hypoglycemic drugs; Z79.899 Other long term (current) drug therapy; Z99.2 Dependence on renal dialysis
CPT/HCPCS: 36415; 49324; 80047; 93005; C1750; J0330; J0690; J1100; J1644; J2250; J2405; J2704; J2710; J3010; J7030

== ENCOUNTER 2018-12-18 17:23 | Emergency (ER) | payer OTHER ==
[~2018-12-18] VITALS: Ht 185.4 cm; Wt 106.7 kg
[~2018-12-18 17:23] MED LIST changes: -BUPIVACAINE/EPI 0.5% 1:200K ONE; -HEPARIN 1,000 UNITS/ML, 10ML ONE; +VITAMIN D PO
[2018-12-18 17:36] VITALS: BP 119/80
--- NOTE | 2018-12-18 18:09 | NUR ---
WITH PT AND RN WEARING MASKS, CLEANED SKIN AROUND VAS CATH WITH CLOR HEXADINE. XEROFORM AND CLEAN 2X2S PLACED AND HELD IN PLACE WITH TAPE
== END 2018-12-18 18:44 | disposition home or self-care (01) ==
LOC: ED 18:00
DX: T82.590A Other mechanical complication of surgically created arteriovenous fistula, initial encounter (principal); I10 Essential (primary) hypertension
CPT/HCPCS: 99282

== ENCOUNTER → 2019-08-07 | Outpatient (CLI) | payer OTHER ==
[~2019-08-07] MED LIST changes: -GLIM2TAB2 PO; +GLIM2TAB7 PO; +REGADENOSON 0.4 MG/5 ML SYRINGE ONE; +SIMV40TA20 PO; -SIMV40TA3 PO
== END | disposition home or self-care (01) ==
LOC: CFH 06:58
PROVIDERS: ATTEND Internal Medicine
DX: Z01.810 Encounter for preprocedural cardiovascular examination (principal); I10 Essential (primary) hypertension; E78.49 Other hyperlipidemia; E11.9 Type 2 diabetes mellitus without complications
CPT/HCPCS: 78452; 93017; 93306; A9502; J2785

== ENCOUNTER 2019-09-01 18:25 | Emergency (ER) | payer OTHER ==
[~2019-09-01] VITALS: Ht 182.9 cm; Wt 110.1 kg
[~2019-09-01 18:25] MED LIST changes: -REGADENOSON 0.4 MG/5 ML SYRINGE ONE
[2019-09-01 18:27] VITALS: BP 161/98
== END 2019-09-01 18:57 | disposition home or self-care (01) ==
LOC: ED 18:50
DX: K02.9 Dental caries, unspecified (principal); K04.7 Periapical abscess without sinus; I10 Essential (primary) hypertension; E11.9 Type 2 diabetes mellitus without complications; Z86.718 Personal history of other venous thrombosis and embolism
CPT/HCPCS: 99283